=== PATIENT | male | born 2000 | race Caucasian/White ===

== ENCOUNTER 2025-05-16 15:16 | Emergency (ER) | payer SELFPAY ==
[2025-05-16] MEDS ORDERED: Glucagon 1 MG/ML KIT ONE (16:51)
== END 2025-05-16 18:14 | disposition home or self-care (01) ==
LOC: ERS 15:16
DX: T17.228A Food in pharynx causing other injury, initial encounter (principal); W44.F3XA Food entering into or through a natural orifice, initial encounter
CPT/HCPCS: 96374; J1611